=== PATIENT | male | born 2005 | race Caucasian/White ===

== ENCOUNTER 2024-03-22 06:26 | Day surgery (SDC) | payer OTHER ==
[2024-03-21 10:37] VITALS: BMI 32.3
== END 2024-03-22 12:26 | disposition home or self-care (01) ==
LOC: SDC 06:26
PROVIDERS: ATTEND Otolaryngology Plastic Surgery within the Head & Neck
PROC: 0CBQ0ZZ Excision of Adenoids, Open Approach (ICD-10-PCS; principal; 2024-03-22)
PROC: 0CBPXZZ Excision of Tonsils, External Approach (ICD-10-PCS; principal; 2024-03-22)
PROC: 09TL0ZZ Resection of Nasal Turbinate, Open Approach (ICD-10-PCS; principal; 2024-03-22)
PROC: 09BM0ZZ Excision of Nasal Septum, Open Approach (ICD-10-PCS; principal; 2024-03-22)
DX: J34.2 Deviated nasal septum (principal); J34.3 Hypertrophy of nasal turbinates; J35.3 Hypertrophy of tonsils with hypertrophy of adenoids; J35.01 Chronic tonsillitis; G47.33 Obstructive sleep apnea (adult) (pediatric); K13.79 Other lesions of oral mucosa
CPT/HCPCS: 88304; J0171; J1030; J1100; J2001; J2250; J2405; J2704; J3010